=== PATIENT | female | born 1960 | race African-American/Black ===

== ENCOUNTER 2022-02-23 16:00 | Emergency (ER) | payer SELFPAY ==
[~2022-02-23] VITALS: Ht 177.8 cm; Wt 81.6 kg
[2022-02-23 16:05] VITALS: BP 147/87
== END 2022-02-23 17:32 | disposition left against medical advice (07) ==
LOC: EDBD → MED 16:00
DX: I10 Essential (primary) hypertension (principal); Z60.9 Problem related to social environment, unspecified; Z88.8 Allergy status to other drugs, medicaments and biological substances
CPT/HCPCS: 99283

== ENCOUNTER 2022-02-23 18:35 | Emergency (ER) | payer SELFPAY ==
[~2022-02-23] VITALS: Ht 177.8 cm; Wt 81.6 kg
[2022-02-23 18:46] VITALS: BP 145/109
== END 2022-02-23 19:20 | disposition left against medical advice (07) ==
LOC: MED 18:35
DX: F10.239 Alcohol dependence with withdrawal, unspecified (principal); Z53.21 Procedure and treatment not carried out due to patient leaving prior to being seen by health care provider

== ENCOUNTER 2022-02-23 23:13 | Emergency (ER) | payer SELFPAY ==
[~2022-02-23] VITALS: Ht 180.3 cm; Wt 81.6 kg
[2022-02-23 23:23] VITALS: BP 135/78
[2022-02-23 23:41] LABS: BASOPHILS % (AUTO) 0.6 % (0.0-2.0); HEMATOCRIT 35.6 % (36-48); HEMOGLOBIN 11.7 g/dL (12.0-16.0); MEAN CORPUSCULAR HEMOGLOBIN 28 pg (27-31); MEAN CORPUSCULAR HGB CONC 33 g/dL (33-37); MONOCYTES # (AUTO) 0.7 K/uL (0.8-1.0); MONOCYTES % (AUTO) 9.4 % (1.7-9.3); NEUTROPHILS # (AUTO) 4.5 K/uL (1.8-7.7); PLATELET COUNT (AUTO) 278 K/uL (140-450); RED BLOOD CELL COUNT(AUTO) 4.23 MIL/uL (4.20-5.40); RED CELL DISTRIBUTION WIDTH 17.5 % (11.6-13.7); WHITE BLOOD COUNT (AUTO) 7.3 K/uL (4.8-10.8)
[2022-02-24 00:01] LABS: ALBUMIN 4.1 g/dL (3.4-5.0); ANION GAP 21.3 (8-16); CARBON DIOXIDE 21.1 mmol/L (21-32); CREATININE 1.5 mg/dL (0.6-1.3); POTASSIUM 4.4 mmol/L (3.5-5.1); SALICYLATE 4.5 mg/dL (2.8-20.0); TOTAL BILIRUBIN 0.3 mg/dL (0.0-1.0)
[2022-02-24] MEDS ORDERED: NACL 0.9% 1,000 ML IV ONE (01:35)
[2022-02-24 09:00] VITALS: BP 144/80
== END 2022-02-24 09:01 | disposition home or self-care (01) ==
LOC: MED 23:13
DX: F10.129 Alcohol abuse with intoxication, unspecified (principal); I10 Essential (primary) hypertension; Z88.8 Allergy status to other drugs, medicaments and biological substances
CPT/HCPCS: 36415; 80053; 85025; 96360; 99285; G0480; G0482; J7030